=== PATIENT | male | born 1995 | race Caucasian/White ===

== ENCOUNTER 2016-12-22 21:07 | Emergency (ER) | payer BC, OTHER ==
[~2016-12-22] VITALS: Ht 175.3 cm; Wt 72.7 kg
[2016-12-22 22:28] VITALS: Ht 175.3 cm; Wt 72.7 kg
[2016-12-23] MEDS ORDERED: DIPHTH/TET/ACEL PERTUSS (ADULT) 0.5 ML VIAL IM* ONE (00:30)
--- NOTE | 2016-12-23 00:38 | ERD ---
ER Documentation Chief Complaint Date/Time DATE: 12/23/16 TIME: 00:33 Chief Complaint LAC TO RT FOURTH FINGER FROM A BIKE CHAIN AT 9PM MARZENA HPI 21-year-old male presents here in emergency department for complaints of a laceration wound on the 2nd finger, pain on the third finger after being caught on a bike chain today. Patient described the pain as throbbing pain, 6/10 scale , is worse upon movement. She denies any numbness or tingling. Patient denies any deformity. Patient did not take any medication to help with symptoms ROS All systems reviewed and are negative except as per history of present illness. Medications Home Meds Reported Medications [none] Unknown Strength No Conflict Check 12/23/16 Allergies Allergies: Coded Allergies: No Known Allergy (Unverified , 12/22/16) PMhx/Soc unknown last tetanus immunization Medical and Surgical Hx: pt denies Medical Hx, pt denies Surgical Hx History of Surgery: No Anesthesia Reaction: No Hx Neurological Disorder: No Hx Respiratory Disorders: No Hx Cardiac Disorders: No Hx Psychiatric Problems: No Hx Alcohol Use: No Hx Substance Use: No Smoking Status: Never smoker FmHx Family History: No coronary disease, No diabetes, No other Physical Exam Vitals Vital Signs Date Time Temp Pulse Resp B/P Pulse Ox O2 Delivery O2 Flow Rate FiO2 12/22/16 22:28 98.1 66 18 135/88 98 Physical Exam GENERAL: The patient is well developed and appropriate for usual state of health, in no apparent distress. CHEST: Clear to auscultation bilaterally. There are no rales, wheezes or rhonchi. HEART: Regular rate and rhythm. No murmurs, clicks, rubs or gallops. No S3 or S4. ABDOMEN: Soft, nontender and nondistended. Good bowel sounds. No rebound or guarding. No gross peritonitis. No gross organomegaly or masses. No Garza sign or McBurney point tenderness. BACK: No midline or flank tenderness. EXTREMITIES: Stable To do full range of motion of the left fourth and third finger without any restriction but with pain. Equal pulses bilaterally. Full range of motion of other joints of the body. Grossly neurovascularly intact. NEURO: Alert and oriented. Cranial nerves 2-12 intact. Motor strength in all 4 extremities with 5/5 strength. Sensation grossly intact. Normal speech and gait. SKIN: Superficial laceration wound on the palmar aspect of the left fourth finger, with some swelling noted, noted some skin avulsion.. There is no apparent rash or petechia. The skin is warm and dry. HEMATOLOGIC AND LYMPHATIC: There is no evidence of excessive bruising or lymphedema. No gross cervical, axillary, or inguinal lymphadenopathy. Results 24 hrs Current Medications Medications (Trade) Dose Ordered Sig/Roger Route PRN Reason Start Time Stop Time Status Last Admin Dose Admin Diphtheria/ Tetanus/Acell Pertussis (Adacel) 0.5 ml ONCE ONCE IM* 12/23/16 00:30 12/23/16 00:31 DC 12/23/16 00:53 Tdap was given to prevent tetanus. Patient tolerated medication well. PROCEDURE: XR hand. CLINICAL INDICATION: Trauma TECHNIQUE: AP, lateral and oblique views of the right hand was obtained. COMPARISON: There are no similar studies submitted for comparison. FINDINGS: There is normal bone mineralization. There is no acute fracture or dislocation. No osseous erosions are identified. The joint spaces are within normal limits. There is a questionable 4 mm mildly radiopaque foreign body versus skin fold projected along the medial aspect of the second intermediate phalanx on the AP view only. This may be external to the patient. IMPRESSION: No acute fracture or dislocation. RPTAT: HIKT .Adis Ann MD, MD Date Time Electronically viewed and signed by .Adis Ann MD, on 12/23/2016 01:26 .T/ CC: CHARAN ALLEN NP After receiving patients xray report, a finger metal splint was applied on the patients 2nd and 3rd left finger. After application of the splint, patient has intact sensation and circulation on distal area of the affected joint. Patient does not complain of numbness or tingling after application of the splint. Patient tolerated procedure well. Procedures/MDM Procedure Note: After obtaining informed consent, the wound was irrigated with 250 ml of normal saline and cleaned with diluted betadine. Using aseptic technique, the wound was approximated using a Steri-Strips. After the procedure, the wound was well approximated. Patient tolerated procedure well. Medical Decision Making: Patient's pain is most likely consistent with a contusion or a sprain. There is no suspicion for neurovascular compromise. Patient has intact sensation and circulation of the affected extremity. There is low suspicion for septic arthritis. Patient does not have any fever. Radiology exams of the affected area does not show any fracture or dislocation. Disposition: Home. Patient is given prescription for ibuprofen for pain. Patient was advised to elevate the affected area and apply ice on affected area. Patient was advised that if symptoms are worse, numbness, tingling, high fever, unable to move joint, worsening symptoms, to return to emergency department immediately. Otherwise, patient is advised to follow up with the primary care doctor in 5-7 days for reevaluation of symptoms. Keflex was given to prevent infection on affected area. Departure Diagnosis: Primary Impression: Skin avulsion Additional Impressions: Finger laceration Encounter type: initial encounter Qualified Code: S61.219A - Finger laceration, initial encounter Finger contusion Encounter type: initial encounter Finger: index finger Damage to nail status: without damage Laterality: left Qualified Code: S60.022A - Contusion of left index finger without damage to nail, initial encounter Condition: Stable Patient Instructions: Finger Contusion, Laceration, Extrem (Suture, Staple, Or Tape) Additional Instructions: keep dry for 6-10 days, wound check 2 days. take meds as prescribed. CHARAN ALLEN NP Dec 23, 2016 00:38
--- NOTE | 2016-12-23 01:26 | RADRPT ---
PROCEDURE: XR hand. CLINICAL INDICATION: Trauma TECHNIQUE: AP, lateral and oblique views of the right hand was obtained. COMPARISON: There are no similar studies submitted for comparison. FINDINGS: There is normal bone mineralization. There is no acute fracture or dislocation. No osseous erosions are identified. The joint spaces are within normal limits. There is a questionable 4 mm mildly radiopaque foreign body versus skin fold projected along the med ial aspect of the second intermediate phalanx on the AP view only. This may be external to the tsering ent. IMPRESSION: No acute fracture or dislocation. RPTAT: HIKT .Adis Ann MD, MD Date Time Electronically viewed and signed by .Adis Ann MD, on 12/23/2016 01:26 .T/
[2016-12-23] MEDS ORDERED: CEPH-443 PO (01:41)
[2016-12-23] MEDS ORDERED: IBUP-1542 PO (01:41)
== END 2016-12-23 01:56 | disposition home or self-care (01) ==
LOC: FTE 21:07
DX: S61.205A Unspecified open wound of left ring finger without damage to nail, initial encounter (principal); S60.022A Contusion of left index finger without damage to nail, initial encounter; W23.0XXA Caught, crushed, jammed, or pinched between moving objects, initial encounter; Y92.9 Unspecified place or not applicable; Z23 Encounter for immunization
CPT/HCPCS: 90471; 90715

== ENCOUNTER 2016-12-26 13:01 | Emergency (ER) | payer OTHER ==
[~2016-12-26] VITALS: Wt 76.0 kg
[~2016-12-26 13:01] MED LIST: CEPH-443 PO; IBUP-1542 PO
--- NOTE | 2016-12-26 14:44 | ERD ---
ER Documentation Chief Complaint Date/Time DATE: 12/26/16 TIME: 14:42 Chief Complaint right index finger wound check . dressing intact. HPI Patient is a 21-year-old male who presents the ER for a right index finger wound check. Patient states that he sustained a laceration 4 days ago with a bike chain. Laceration was closed with Steri-Strips. Patient reports some stiffness with moving affected digit. Patient was given his tetanus shot at his last ER visit. Patient denies any fevers, chills, nausea, vomiting, chest pain or shortness of breath. Patient denies any warmth, swelling, discharge from the affected site. ROS All systems reviewed and are negative except as per history of present illness. Medications Home Meds Active Scripts Cephalexin* (Keflex*) 500 Mg Capsule, 500 MG PO QID for 5 Days, CAP Prov:CHARAN ALLEN NP 12/23/16 Ibuprofen* (Motrin*) 600 Mg Tab, 600 MG PO Q6H Y for PAIN AND OR ELEVATED TEMP, #30 TAB Prov:CHARAN ALLEN SEAMER OPERATOR 12/23/16 Reported Medications [none] Unknown Strength No Conflict Check 12/23/16 Allergies Allergies: Coded Allergies: No Known Allergy (Unverified , 12/22/16) PMhx/Soc History of Surgery: No Anesthesia Reaction: No Hx Neurological Disorder: No Hx Respiratory Disorders: No Hx Cardiac Disorders: No Hx Psychiatric Problems: No Hx Alcohol Use: No Hx Substance Use: No Physical Exam Vitals Vital Signs Date Time Temp Pulse Resp B/P Pulse Ox O2 Delivery O2 Flow Rate FiO2 12/26/16 13:04 98.5 84 21 130/74 98 Physical Exam GENERAL: Well-developed, well-nourished male. Appears in no acute distress. HEAD: Normocephalic, atraumatic. EYES: Pupils are equally reactive bilaterally. EOMs grossly intact. No conjunctival erythema. ENT: Moist mucous membranes. No uvula deviation. No kissing tonsils. NECK: Supple. No meningismus. Normal range of motion of the neck. LUNG: Clear to auscultation bilaterally. No rhonchi, wheezing, rales or coarse breath sounds. HEART: Regular rate and rhythm. No murmurs, rubs or gallops. EXTREMITIES: Equal pulses bilaterally. No peripheral clubbing, cyanosis or edema. No unilateral leg swelling. NEUROLOGIC: Alert and oriented. Moving all four extremities without any difficulty. Normal speech. Steady gait. SKIN: Normal color. Warm and dry. No rashes or lesions. Steri strips noted on the left fourth digit, palmar aspect. Procedures/MDM MEDICAL DECISION MAKING: This is a 21-year-old male who presents for wound check of a laceration he sustained on right 4th digit 4 days ago. Vital signs were reviewed. Patient is afebrile. The patient's wound was soaked in sterile water. Steri strips previously placed were removed to allow for wound inspection. The wound appears to be healing by secondary intention with no concerns of acute infection at this time. Macerated skin areas were noted and removed using sterile scissors. No wound drainage noted. Tetanus is up-to-date. Wound was redressed with xeroform. Patient was given wound care supplies including sterile gauze and antibacterial ointment. Post-procedural wound care was discussed with the patient. Patient was advised to allow wound to dry when at home. PRESCRIPTIONS: Continue to take antibiotics as prescribed. Complete full course. Take pain medication as needed. DISCHARGE: At this time, the patient is stable for discharge and outpatient management. Post-procedural wound care was discussed with the patient. I have instructed the patient to promptly return to the ER for any new or worsening symptoms including increasing pain, fever, warmth, redness or swelling. The patient and/ or family expressed understanding of and agreement with this plan. All questions were answered. Home care instructions were provided. Departure Diagnosis: Primary Impression: Visit for wound check Additional Impression: Laceration Condition: Stable Patient Instructions: Laceration, All Referrals: KARIE RAY MD (PCP) Additional Instructions: Call your primary care doctor TOMORROW for an appointment during the next 1-2 days.See the doctor sooner or return here if your condition worsens before your appointment time. Return to emergency department for any new or worsening symptoms including but not limited to severe redness, warmth, swelling, fever, chills, nausea, vomiting. Wound care discussed with the patient. Patient provided with wound care supplies. ALEKSANDAR GALLARDO PA-C Dec 26, 2016 14:43
== END 2016-12-26 15:47 | disposition home or self-care (01) ==
LOC: FTE 13:01
DX: Z48.01 Encounter for change or removal of surgical wound dressing (principal)
CPT/HCPCS: 99281